=== PATIENT | male | born 1960 | race Caucasian/White ===

== ENCOUNTER → 2016-08-02 | Outpatient (CLI) | payer OTHER ==
[~2016-08-02] MED LIST: ALBUTEROL17 GM INH; AMBIEN10 MG PO; B12 INJECTION; BYSTOLIC10 MG PO; CARVEDILOL12.5 MG PO; CETIRIZINE HCL5 MG PO; CLOPIDOGREL BIS75 MG PO; COUMADIN2.5 MG PO; CRESTOR10 MG PO; CYANOCOBAL1000 MCG/M INJ; CYCLOBENZAPRINE5 MG PO; FISH OIL 1,0001 EAC1 PO; FLEXERIL PO; GABAPENTIN300 M2 PO; LISINOPRIL10 MG PO; LOPRESSOR PO; LORTAB 10/500 T1 TAB PO; OMEGA 3 FISH1 CAP.EC PO; PERCOCET 10/31 UDTA1 PO; PERCOCET 10/3251 TAB PO; PRAVACHOL PO; SIMVASTATIN10 MG PO; SYNTHROID PO; VICODIN 5/500 T1 TAB PO; VITAMIN D1000 UNIT PO; VITAMIN D35000 UNI1 PO; VITAMIN D50000 UNIT PO; XANAX0.5 MG PO; XANAX1 MG PO; ZOLPIDEM TART12.5 M1 PO
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
== END | disposition home or self-care (01) ==
LOC: SRAD 10:42
DX: M54.5 Low back pain (principal); M51.36 Other intervertebral disc degeneration, lumbar region
CPT/HCPCS: 72100

== ENCOUNTER → 2016-09-13 | Outpatient (CLI) | payer OTHER ==
--- NOTE | ~2016-09-13 | MR58 ---
[facility] A Service of [facility] RADIOLOGY TEXT RESULTS PATIENT: DEBBI CALIX LOCATION: [facility] : 64 UNIT #: [id number] AGE: [address]: VIVIANA RICHARD PA-C SEX: M ORDER DR: [id number] [place] [id number] O MR#: [id number] Acc #: [id number] NAME: DEBBI CALIX : 1960 SEX: M STUDY DATE/TIME: 09/13/2016 11:59 UNIT: [facility] ROOM: STUDY DESCRIPTION: MR Foot WWo Contrast Lt Attending Physician: Viviana Richard Pa-C Referring Physician: Viviana Richard Pa-C Ordering Physician: Maurilio Rogers M.D. Primary Care Physician: Maurilio Rogers M.D. MRI CENTER REPORT This report is preliminary unless electronic signature is present. EXAM Left foot MRI without with contrast 09/13/2016 HISTORY 56-year-old male with chronic left foot pain for 7 months status post fifth toe amputation. Patient states incisional pain and plantar foot pain. COMPARISON Left foot MRI 03/25/2011. Left foot x-rays 05/09/2016 and 08/08/2016. TECHNIQUE Multiplanar, multisequence high-field MR imaging of the left midfoot and forefoot was performed both pre and post administration of IV gadolinium (18 mL MultiHance). FINDINGS There are postoperative changes from transmetatarsal amputation of the fifth ray through the proximal metaphysis of the fifth metatarsal. There are stable, expected postoperative changes noted in the soft tissues along the lateral aspect of the midfoot and forefoot without evidence of significant soft tissue edema or residual fluid collection. No MR evidence of osteomyelitis. Visualized musculature is within expected limits. There are mild degenerative changes of the first metatarsophalangeal joint. No abnormal enhancement seen along the lateral aspect of the midfoot or forefoot. Flexor and extensor tendons are, otherwise, grossly unremarkable. IMPRESSION 1. Postoperative changes from transmetatarsal amputation of the fifth ray. No abnormal enhancement in the surgical bed. No significant soft tissue edema or drainable fluid collections. No MR evidence of osteomyelitis. [facility]. [facility] A Service of [facility] RADIOLOGY TEXT RESULTS PATIENT: DEBBI CALIX LOCATION: [facility] : 64 UNIT #: [id number] AGE: [address]: VIVIAAN RICHARD PA-C SEX: M ORDER DR: 2. Mild degenerative changes of the first metatarsophalangeal joint. Dictated by... Bipin Ang M.D. THIS IS AN ELECTRONICALLY VERIFIED REPORT Bipin Ang M.D. at 09/15/2016 7:39 AM BOOKER/hao TD: 09/14/2016 15:58 JOB #: [id number] MRI CENTER REPORT Page 1 of 1
== END | disposition home or self-care (01) ==
LOC: SMRI 11:09
DX: M79.672 Pain in left foot (principal); G89.29 Other chronic pain; Z89.422 Acquired absence of other left toe(s); Z98.890 Other specified postprocedural states
CPT/HCPCS: 73720; A9581